=== PATIENT | male | born 1975 | race Caucasian/White ===

== ENCOUNTER 2023-12-21 10:04 | Outpatient (CLI) | payer BC, OTHER ==
[2023-12-21 10:59] LABS: #Basophils 0.06 10x3/uL (0.0-0.2); #Eosinophils 0.28 10x3/uL (0.0-0.5); #Monocytes 0.62 10x3/uL (0.0-1.1); #Neutrophils 6.99 10x3/uL (1.5-8.4); %Basophils 0.6 % (0.0-2.0); %Eosinophils 2.8 % (0.0-6.0); %Monocytes 6.3 % (0.0-10.0); %Neutrophils 71.1 % (40.0-75.0); Hematocrit 49.9 % (38.8-50.0); Hemoglobin 16.2 g/dL (13.5-17.5); Mean Corpuscular HGB CONC 32.5 g/dL (32.0-36.0); Mean Corpuscular Hemoglobin 28.7 pg (27.0-33.0); Mean Corpuscular Volume 88.5 fL (81.2-95.1); Mean Platelet Volume 9.8 fL (7.4-10.4); Platelet Count 289 10x3/uL (150-450); RBC Distribution Width 12.7 % (11.5-14.5); Red Blood Cell (RBC) Count 5.64 10x6/uL (4.32-5.72); White Blood Cell (WBC) Count 9.8 10x3/uL (3.5-10.5)
[2023-12-21 12:34] LABS: Anion Gap 14 mmol/L (10-20); BUN (Urea Nitrogen) 16 mg/dL (8.9-20.6); Calc. Creatinine Clearance 0 mL/min (70-130); Calcium 10.1 mg/dL (7.8-10.44); Carbon Dioxide 27 mmol/L (22-29); Chloride 105 mmol/L (98-107); Estimated GFR 83; Glucose 91 mg/dL (70-105); Potassium 5.1 mmol/L (3.5-5.1); Sodium 141 mmol/L (136-145)
== END 2023-12-21 10:05 | disposition home or self-care (01) ==
LOC: CSHLAB 10:04
PROVIDERS: ATTEND Surgery
DX: Z01.818 Encounter for other preprocedural examination (principal); K40.90 Unilateral inguinal hernia, without obstruction or gangrene, not specified as recurrent; K42.9 Umbilical hernia without obstruction or gangrene
CPT/HCPCS: 80048; 85025; 93005; 93010

== ENCOUNTER 2023-12-25 06:21 | Day surgery (SDC) | payer BC, OTHER ==
[2023-12-21 10:33] VITALS: BMI 35.2
[2023-12-25] MEDS ORDERED: Fentanyl 250 MCG/5 ML VIAL ONE (07:41)
[2023-12-25] MEDS ORDERED: PROPOFOL 20 ML ONE ×2 (07:41→07:42)
[2023-12-25] MEDS ORDERED: Lidocaine 1% PF 5 ML VIAL ONE (07:42)
[2023-12-25] MEDS ORDERED: Dexmedetomidine 200 MCG/2 ML VIAL ONE (07:44)
[2023-12-25] MEDS ORDERED: Bupivacaine/Epinephrine 0.25% 30 ML VIAL ONE (08:13)
[2023-12-25] MEDS ORDERED: CEFAZOLIN 2 GM VIAL ONE (08:13)
[2023-12-25] MEDS ORDERED: Midazolam HCl 2 mg/2 ml Vial ONE (08:13)
[2023-12-25] MEDS ORDERED: Ketorolac Tromethamine 30 MG (1 mL) VIAL ONE (09:33)
[2023-12-25] MEDS ORDERED: Ondansetron PF 4 MG/2 ML Vial ONE (09:33)
[2023-12-25] MEDS ORDERED: SUGAMMADEX SODIUM 200 MG/2 ML VIAL ONE (09:33)
[2023-12-25] MEDS ORDERED: fentaNYL 50 mcg/mL 1 mL Vial ONE (10:26)
== END 2023-12-25 11:40 | disposition home or self-care (01) ==
LOC: CSHSDC 06:21
PROVIDERS: ATTEND Surgery
PROC: 0WUF0JZ Supplement Abdominal Wall with Synthetic Substitute, Open Approach (ICD-10-PCS; principal; 2023-12-25)
PROC: 0YUA4JZ Supplement Bilateral Inguinal Region with Synthetic Substitute, Percutaneous Endoscopic Approach (ICD-10-PCS; principal; 2023-12-25)
DX: K40.20 Bilateral inguinal hernia, without obstruction or gangrene, not specified as recurrent (principal); K43.9 Ventral hernia without obstruction or gangrene; Z88.6 Allergy status to analgesic agent; Z79.899 Other long term (current) drug therapy; Z79.2 Long term (current) use of antibiotics
CPT/HCPCS: C1781; J1885; J2250; J2405; J2704; J3010; S2900